=== PATIENT | male | born 1980 | race Two or more races ===

== ENCOUNTER 2020-11-28 15:23 | Emergency (ER) | payer OTHER ==
[~2020-11-28] VITALS: Ht 182.9 cm; Wt 81.6 kg
[~2020-11-28 15:23] MED LIST: BENADRYL25 MG PO; BUCALSEP SPRAY30 ML MM; MEDROL8 MG PO
[2020-11-28] MEDS ORDERED: DUI500 PO (16:59)
== END 2020-11-28 17:02 | disposition home or self-care (01) ==
LOC: ER 15:23
DX: J03.90 Acute tonsillitis, unspecified (principal)

== ENCOUNTER 2021-06-14 11:52 | Emergency (ER) | payer OTHER ==
[~2021-06-14] VITALS: Ht 182.9 cm; Wt 88.9 kg
[~2021-06-14 11:52] MED LIST changes: +DUI500 PO
== END 2021-06-14 17:36 | disposition home or self-care (01) ==
LOC: ER 11:52
DX: B34.9 Viral infection, unspecified (principal); Z03.818 Encounter for observation for suspected exposure to other biological agents ruled out